=== PATIENT | female | born 1950 | race Two or more races ===

== ENCOUNTER 2020-03-01 11:03 | Outpatient (REF) | payer OTHER, SELFPAY ==
--- NOTE | 2020-03-01 11:12 | XR_ITS ---
EXAMINATION: LEFT ANKLE AND LEFT FOOT. CLINICAL INFORMATION: On cystoscopy injury of the left foot and left ankle. COMPARISON: None TECHNIQUE: 3 views left ankle and 3 views left foot FINDINGS: LEFT ANKLE: There is no visible acute fracture, dislocation or subluxation. The soft tissues are normal. LEFT FOOT: There is mild hallux valgus deformity first MTP joint. No visible acute fracture, dislocation or subluxation seen. The soft tissues are normal. XR/XR foot LT min 3V IMPRESSION: Unremarkable left foot exam. Unremarkable left ankle exam.
--- NOTE | 2020-03-01 11:12 | XR_ITS ---
EXAMINATION: LEFT ANKLE AND LEFT FOOT. CLINICAL INFORMATION: On cystoscopy injury of the left foot and left ankle. COMPARISON: None TECHNIQUE: 3 views left ankle and 3 views left foot FINDINGS: LEFT ANKLE: There is no visible acute fracture, dislocation or subluxation. The soft tissues are normal. LEFT FOOT: There is mild hallux valgus deformity first MTP joint. No visible acute fracture, dislocation or subluxation seen. The soft tissues are normal. XR/XR ankle LT 2V IMPRESSION: Unremarkable left foot exam. Unremarkable left ankle exam.
== END 2020-03-01 11:04 | disposition home or self-care (01) ==
LOC: HO.HMGCX 11:03
PROVIDERS: PCP Internal Medicine; Visit Provider Nurse Practitioner Family
DX: S99.922A Unspecified injury of left foot, initial encounter (principal)
CPT/HCPCS: 73600; 73630

== ENCOUNTER → 2022-09-06 08:47 | Outpatient (BNVA) | payer MEDICARE, OTHER, SELFPAY | PROVIDERS: PCP Internal Medicine; Visit Provider Internal Medicine Rheumatology | DX: M19.049 Primary osteoarthritis, unspecified hand (principal); M47.816 Spondylosis without myelopathy or radiculopathy, lumbar region | CPT/HCPCS: 99212 ==

== ENCOUNTER 2024-01-29 08:35 | Outpatient (AMB) | payer MEDICARE, OTHER, SELFPAY ==
--- NOTE | 2024-01-29 08:37 | MHC.OFFWIV ---
Intake Vital Signs 01/29/24 08:39 Weight 163 lb 2 oz BP 124/82 Blood Pressure Location Rt brachial Position Sitting Pulse 108 H Pulse Source Pulse Oximeter Temp 98.2 F Temp Source Oral Pulse Oximetry (%) 98 Oxygen Delivery Method Room Air Intake Visit Reasons: EP- Diarrhea Intake Note: Patient here for diarrhea that has been present for over 1 week. she states she is having to bring extra clothes everywhere she goes. Patient Tobacco Use Status: Current everyday Tobacco user Allergies amoxicillin [From Augmentin] Allergy (Verified 01/29/24 08:40) vomiting, nausea clavulanic acid [From Augmentin] Allergy (Verified 01/29/24 08:40) vomiting, nausea Sulfa (Sulfonamide Antibiotics) Adverse Reaction (Mild, Verified 01/29/24 08:40) vomiting and nausea, sweat Do you need a note to return to daycare/school/sports/work: No HPI EP- Diarrhea HPI Details This note is constructed using voice recognition software. While every effort has been made to ensure accuracy, emissions testing and repair technician errors may have been included. The patient is a 73 year old female who presents to the clinic today with complaints of diarrhea. She reports that approximately 1-1/2 weeks ago she started with watery stools, multiple per day. After a couple of days the stools decreased in intensity, volume, and became soft and mushy. She is still having soft mushy stools, which she refers to as diarrhea. She denies pain, fever, new or different foods. She does report stool incontinence which is new for her. She denies any new back pains or issues with her back. She has tried Pepto-Bismol with resultant black stools. She otherwise has denied any black stools prior to starting the Pepto-Bismol, or any bright red blood per rectum. [facility] Medical History (Updated 09/06/22 @ 07:26 by Emmanuel Marte MD) Allergic rhinitis Asthmatic bronchitis Osteoarthritis Tobacco abuse Essential hypertension Abdominal aortic aneurysm Contusion of leg, right Otitis media of right ear Rash Injury, foot Surgical History Hx of tonsillectomy Family History Father Myocardial infarction Mother Brain tumor Hypertension Social History Household Members: None Alcohol intake: current Alcohol intake frequency: does not drink Patient Tobacco Use Status: Current everyday Tobacco user Current occupational status: retired Current occupation: Home health care Review of Systems Const All systems reviewed & are unremarkable except as noted in HPI and below Physical Exam Vital Signs: Last Vital Signs Temp 98.2 F 01/29/24 08:39 Pulse 108 H 01/29/24 08:39 BP 124/82 01/29/24 08:39 Pulse Ox 98 01/29/24 08:39 Oxygen Delivery Method Room Air 01/29/24 08:39 Const General: cooperative, healthy appearing, comfortable, no acute distress and well developed Orientation/consciousness: patient oriented x3 Limitations: no limitations Resp Effort & Inspection: normal respiratory effort and able to speak in complete sentences Auscultation: clear to auscultation bilaterally Cardio Rate: regular rate Rhythm: regular rhythm Heart sounds: normal S1 and S2 GI Inspection: Yes normal to inspection Palpation (GI): Soft to palpation and nontender Rectal Exam - Female: deferred (declined by patient) Skin General skin exam: no rashes or lesions noted Neuro General: patient oriented x3 Extrem General: Yes normal to inspection Assessment & Plan Assessment & Plan (1) Viral gastroenteritis: Code(s): A08.4 - Viral intestinal infection, unspecified Plan: Given current improvement in symptoms for the past week, likely viral in origin. Advised patient to continue with antidiarrheal [id number] such as Imodium, versus Pepto-Bismol. Advised consideration of food sources that may contribute to symptoms. Advised re-evaluation with increased fever, abdomen pain, or increased episodes of watery diarrhea. Given the fact that the symptoms have resolved, stool studies were not ordered at this time. Reviewed with patient lack of effect of antibiotics in viral etiology. Given stool incontinence, advised rectal exam, however this was declined at this time. Advised patient that she may need re-evaluation if symptoms persist. Plan See above for full details and plan. Coding Level of Care Code Est Pt Level 3 (94400) Diagnoses Viral gastroenteritis A08.4
[2024-01-29 08:39] VITALS: BP 124/82; PULSE 108; TEMP 36.8; O2SAT 98
== END 2024-01-29 09:00 | disposition home or self-care (01) ==
PROVIDERS: PCP Internal Medicine; Visit Provider Registered Nurse
DX: A08.4 Viral intestinal infection, unspecified (principal)

== ENCOUNTER → 2024-01-29 08:35 | Outpatient (BNVA) | payer MEDICARE, OTHER, SELFPAY | PROVIDERS: PCP Internal Medicine; Visit Provider Registered Nurse | DX: A08.4 Viral intestinal infection, unspecified (principal) | CPT/HCPCS: 99212 ==